=== PATIENT | female | born 1990 | race Caucasian/White ===

== ENCOUNTER 2018-12-08 23:43 | Emergency (ER) | payer BC ==
[2018-12-09] MEDS ORDERED: Ondansetron 4 MG Tab.DIS PO ONE (00:26)
--- NOTE | 2018-12-09 00:30 | EDM.PDOC ---
ED HPI GENERAL MEDICAL PROBLEM - General Chief Complaint: Gastrointestinal Problem Stated Complaint: VOMMITNG,DIARRHEA Time Seen by Provider: 12/09/18 00:15 Source of Information: Reports: Patient History Limitations: Reports: No Limitations - History of Present Illness INITIAL COMMENTS - FREE TEXT/NARRATIVE: 28-year-old female who was had diarrhea for the last 3 days, began vomiting tonight. She has crampy abdominal discomfort. No fevers or chills. She has not seen any blood in the vomit or diarrhea. She is afraid she may have some type of food poisoning. She has not recently been on an antibiotic. She is usually very healthy, has had no abdominal surgeries and is on no regular medications other than control. She is very uncomfortable. Onset: Gradual Duration: Day(s): (3 days) Associated Symptoms: Reports: Loss of Appetite, Malaise, Nausea/Vomiting, Weakness. Denies: Chest Pain, Diaphoresis, Fever/Chills, Headaches, Shortness of Breath Abdominal Pain Score (Numeric/FACES): 7 - Related Data Allergies Allergy/AdvReac Type Severity Reaction Status Date / Time acetaminophen [From Vicodin] Allergy Nausea and Verified 12/09/18 00:16 Vomiting hydrocodone bitartrate Allergy Nausea and Verified 12/09/18 00:16 [From Vicodin] Vomiting Home Meds: Home Meds Bith Control 12/09/18 [History] Past Medical History - Past Health History Medical/Surgical History: Denies Medical/Surgical History Social & Family History - Tobacco Use Smoking Status *Q: Never Smoker - Caffeine Use Caffeine Use: Reports: Coffee - Recreational Drug Use Recreational Drug Use: No ED ROS GENERAL - Review of Systems Review Of Systems: See Below Constitutional: Reports: Malaise, Weakness, Decreased Appetite. Denies: Fever, Chills HEENT: Denies: Throat Pain, Vision Change Respiratory: Denies: Cough Cardiovascular: Denies: Chest Pain GI/Abdominal: Reports: Abdominal Pain, Diarrhea, Decreased Appetite, Nausea, Vomiting. Denies: Hematemesis, Hematochezia : Reports: No Symptoms Skin: Reports: No Symptoms Neurological: Denies: Headache ED EXAM, GI/ABD - Physical Exam Exam: See Below Exam Limited By: No Limitations General Appearance: Alert, No Apparent Distress (No distress but looks uncomfortable) Eyes: Bilateral: Normal Appearance (No jaundice or dehydration) Throat/Mouth: Normal Inspection (Normal hydration) Respiratory/Chest: No Respiratory Distress, Lungs Clear GI/Abdominal Exam: Normal Bowel Sounds, Soft, Tender (Some tenderness in the periumbilical area and both lower quadrants, no guarding) Course - Vital Signs Last Recorded V/S: Last Vital Signs Temp 96.6 F 12/09/18 00:09 Pulse 85 12/08/18 23:54 Resp 16 12/09/18 00:09 BP 128/75 12/09/18 00:09 Pulse Ox 96 12/09/18 00:09 - Orders/Labs/Meds Orders: Active Orders 24 hr Category Date Time Status CLOSTRIDIUM DIFFICILE BY PCR [] Stat Lab 12/09/18 00:36 Results CULTURE STOOL + SHIGATOX [RM] Stat Lab 12/09/18 00:36 Results OVA + PARASITE EXAM Stat Lab 12/09/18 00:36 Received Meds: Medications Discontinued Medications Generic Name Dose Route Start Last Admin Trade Name Freq PRN Reason Stop Dose Admin Ondansetron HCl 4 mg 12/09/18 00:26 12/09/18 00:35 Zofran Odt PO 12/09/18 00:27 4 mg ONETIME ONE Administration - Re-Assessments/Exams Free Text/Narrative Re-Assessment/Exam: 12/09/18 00:30 The patient likely has viral gastroenteritis, Zofran was given and a stool sample obtained for O&P, culture, C. difficile and WBC. 12/09/18 01:07 Patient was observed for an hour, had no additional vomiting after the Zofran but did give a stool sample. She was given 5 more doses of Zofran and will be contacted as soon as results are available if something needs to be treated, or will return if not improving for hydration and further evaluation. Departure - Departure Time of Disposition: 01:22 Disposition: Home, Self-Care 01 Condition: Good Clinical Impression: Gastroenteritis - Discharge Information Instructions: Viral Gastroenteritis, Adult Referrals: Luz Alvarado PA-C [Primary Care Provider] - Forms: ED Department Discharge Care Plan Goals: Rest, with frequent small amounts of fluids we'll keep you hydrated. Use Zofran as prescribed for nausea and vomiting, and return in 24 hours if not improving satisfactorily. You will be contacted if any results return that need your attention or further treatment. - My Orders Last 24 Hours: My Active Orders 12/09/18 00:36 CLOSTRIDIUM DIFFICILE BY PCR [RM] Stat CULTURE STOOL + SHIGATOX [RM] Stat OVA + PARASITE EXAM Stat - Assessment/Plan Last 24 Hours: My Active Orders 12/09/18 00:36 CLOSTRIDIUM DIFFICILE BY PCR [RM] Stat CULTURE STOOL + SHIGATOX [RM] Stat OVA + PARASITE EXAM Stat
== END 2018-12-09 01:22 | disposition home or self-care (01) ==
LOC: JP.ED 23:43
DX: K52.9 Noninfective gastroenteritis and colitis, unspecified (principal); Z88.6 Allergy status to analgesic agent
CPT/HCPCS: 87046; 87177; 87209; 87493; 87899; 89055; 99284; A9270